=== PATIENT | female | born 2005 | race Caucasian/White ===

== ENCOUNTER 2025-07-22 02:41 | Emergency (ER) | payer BC, SELFPAY ==
[2025-07-22 02:41] VITALS: BP 142/89; PULSE 111; RESP 23; TEMP 36.8; O2SAT 99; BMI 34.0
--- NOTE | 2025-07-22 02:51 | ED.VIS.GI ---
HPI HPI - GI History of Present Illness Chief Complaint: Abd Pain Informant: patient Abdominal Pain/Flank Pain Onset: Days (5) Context: Gradual Onset Timing: Intermittent Quality: Cramping and Sharp Location: RLQ and LLQ Worsened by: - (Bending, coughing) Relieved by: Nothing Nausea/Vomiting/Emesis GI Symptom: Positive for Nausea and Vomiting Diarrhea/Melena/Hematochezia GI Symptom: Positive for Diarrhea; Negative for Melena or Hematochezia Associated Symptoms Associated Symptoms: Positive for Frequency; Negative for Dysuria or Hematuria Narrative Narrative: Patient presents with abdominal pain that has been intermittent over the last 5 days. Patient states it come on gradually. Patient describes it as sharp and cramping. Patient states it is mainly over the lower abdomen. Patient states it is worse when she bends forward and when she coughs. Patient states nothing makes it better. Patient admits to some nausea and vomiting. Patient denies any hematemesis or coffee-ground emesis. Patient admits to some diarrhea but denies any melena or hematochezia. Patient admits to some urinary frequency but denies any dysuria or hematuria. Patient states her last menstrual period was approximately 2 weeks ago. Patient denies any fevers or chills. Patient states her pain does radiate into her back. [facility] Medical History Hypothyroid Home Medications ?Medication ?Instructions ?Recorded ?Last Taken ?Type levothyroxine 100 mcg tablet 100 mcg PO DAILY 07/22/25 Unknown History norethindrone 1.5 mg-ethinyl 1 tab PO DAILY 07/22/25 Unknown History estradiol 30 mcg(21)/iron 75 mg(7) tablet (Ruthie Fe 1.5/30 (28)) Allergy/AdvReac Type Severity Reaction Status Date / Time No Known Allergies Allergy Verified 07/22/25 02:44 Social History Smoking Status: Never smoker ROS ROS ED Constitutional Constitutional ED: Denies chills or fever(s) Eyes Eyes: Denies blurry vision or change in vision ENT ENT ED: Denies rhinorrhea or sore throat Cardiovascular Cardiovascular: Denies chest pain or palpitations Respiratory/Chest Respiratory/Chest: Reports cough; Denies dyspnea Gastrointestinal Gastrointestinal: Reports abdominal pain, diarrhea, nausea and vomiting Genitourinary Genitourinary ED: Reports urinary frequency; Denies dysuria or hematuria Musculoskeletal Musculoskeletal: Reports back pain; Denies neck pain Integumentary Denies abscess or rash Neurologic Neurologic: Reports headache(s); Denies weakness Allergic/Immunologic Allergic/Immunologic ED: Denies mouth swelling or urticaria EXAM Physical Exam Const Vital Signs: 07/22/25 02:41 07/22/25 03:00 Temperature 98.2 F Temperature Source Oral Pulse Rate 111 H 89 Respiratory Rate 23 H 18 Blood Pressure 142/89 H 141/85 H Blood Pressure Mean 106 103 Pulse Ox 99 100 Oxygen Delivery Method Room Air Room Air Positive well nourished and well developed General Appearance ED: well developed and NAD HEENT Reports moist mucous membranes normocephalic and atraumatic Neck supple and no JVD Resp normal respiratory effort and clear to auscultation bilaterally Cardio regular rate and regular rhythm GI non-distended Palpation: soft and tender epigastric, LLQ, RLQ, LUQ, RUQ, periumbilical and suprapubic; Negative for guarding or rebound tenderness present Extremity full ROM General Extremety ED: Negative for edema General Extremity: Negative for edema Neuro CN's II-XII intact bilaterally, moves all extremities and no sensory deficits noted Sensorium / Orientation: alert Motor Exam: strength 5/5 throughout Psych mental status grossly normal and thought process normal MDM MDM MDM Narrative Medical decision making narrative: Differential diagnosis includes viral gastroenteritis, dehydration, pancreatitis, cholecystitis, cholelithiasis, electrolyte abnormality, urinary tract infection, , and anxiety. CBC will be obtained to assess for leukocytosis and anemia. Comprehensive metabolic profile will be obtained to assess for hepatic function, renal function, and electrolyte abnormality. Lipase will be obtained to assess for pancreatitis. Serum hCG will be obtained to assess for . History & Record Review Additional record(s) reviewed:: Prior outpatient record Lab Data Attestation: I reviewed the patient's lab results. Lab results narrative: CBC was reviewed and was within normal limits. Comprehensive metabolic profile was reviewed and was within normal limits. Lipase was reviewed and was normal at 21. Serum hCG was reviewed and was negative. Labs: Laboratory Results - last 24 hr 07/22/25 02:47 WBC 7.7 RBC 5.16 Hgb 14.8 Hct 42.9 MCV 83.1 MCH 28.7 MCHC 34.5 RDW Std Deviation 39.0 RDW Coeff of Yehuda 12.9 Plt Count 263 MPV 10.5 Immature Gran % (Auto) 0.500 Neut % (Auto) 60.0 Lymph % (Auto) 32.7 [place] % (Auto) 5.4 Eos % (Auto) 0.9 Baso % (Auto) 0.5 Absolute Neuts (auto) 4.6 Absolute Lymphs (auto) 2.52 Nucleated RBC % 0 Sodium 138 Potassium 3.9 Chloride 104 Carbon Dioxide 20.0 L Anion Gap 14 BUN 12 Creatinine 0.81 Estim Creat Clear Calc 110.76 Est GFR (MDRD) Non-Af 106 BUN/Creatinine Ratio 15.2 Glucose 101 H Calcium 9.5 Total Bilirubin 0.23 AST 20 ALT 16 Alkaline Phosphatase 47 Total Protein 7.7 Albumin 4.4 Globulin 3.3 Albumin/Globulin Ratio 1.3 Lipase 21 Serum , Qual NEGATIVE Treatment and Re-Evaluation :: Patient was given IV fluids and Zofran. Patient was feeling better on reevaluation. Patient was advised of her findings. Patient was instructed to drink plenty of fluids. Patient was instructed to take Tylenol or ibuprofen as needed for any pain. Patient was instructed to follow-up with her primary care physician in 5 to 7 days for further evaluation. Patient understood and was agreeable with the plan. All questions were answered. Discharge Plan Triage Chief Complaint: Abd Pain ED Provider: Peterson Jean Dx/Rx/DC Orders Clinical Impression: Abdominal pain, Nausea, vomiting, and diarrhea Instructions: ED Abdominal Pain Unkn Cause Fem Prescriptions: No Action norethindrone-e.estradiol-iron [Ruthie Fe 1.5/30 (28)] 1.5 mg-30 mcg (21)/75 mg (7) tablet 1 tab PO DAILY levothyroxine 100 mcg tablet 100 mcg PO DAILY Stand Alone Forms: ED Work / School Excuse Primary Care Provider: ZENAIDA PLEITEZ Referrals: ZENAIDA PLEITEZ [Other] - 5-7 Days Grayson Watkins DO [Non-Staff, Pediatrics] - 5-7 Days Print Language: [place] Disposition Disposition: Home, Self Care
[2025-07-22 03:00] VITALS: BP 141/85; PULSE 89; RESP 18; O2SAT 100
[2025-07-22] MEDS: 0.9% Normal Saline (1000mL) 1,000 ML 999 ML IV (03:09)
[2025-07-22 03:14] LABS: Hematocrit 42.9 % (37-47); Hemoglobin 14.8 g/dL (12.0-15.0); Immature Granulocytes Count 0.040 X10^3/uL (0.0-0.0); Mean Corp Hgb Conc 34.5 g/dL (32-36); Mean Corpuscular Volume 83.1 fL (81-99); Mean Platelet Vol. 10.5 fl (6.2-12.0); NRBC Flagged by Analyzer 0 % (0-5); Platelet Count 263 K/mm3 (150-450); RBC Distribution Width CV 12.9 % (11.6-14.6); RBC Distribution Width SD 39.0 fl (35.1-43.9); Red Blood Count 5.16 M/mm3 (4.2-5.4); White Blood Count 7.7 K/mm3 (4.4-11.0)
--- OUTSIDE RECORDS SUMMARY | 2025-07-22 03:27 | XMS RPT_ITS | CCD ---
Author Organization [facility] Care Team Providers Care Agency Sales Representative Name Role Phone FARA, PAUL Admitting Unavailable FARA, PAUL Attending Unavailable FARA, PAUL Primary Care Unavailable FARA, PAUL Admitting Unavailable FARA, PAUL Attending Unavailable FARA, PAUL Primary Care Unavailable FARA, PAUL Consulting Unavailable PROVIDER, UNKNOWN Consulting Unavailable FARA, PAUL Admitting Unavailable FARA, PAUL Attending Unavailable FARA, PAUL Primary Care Unavailable FARA, PAUL Consulting Unavailable PROVIDER, UNKNOWN Consulting Unavailable LUCAS LOFTON, JUNIOR Consulting Unavailable WOOD DO~[id number], WOOD [place]ST[place] A Attending Unavailable WOOD DO~[id number], WOOD [place] A Admitting Unavailable PLEITEZ OPTICAL DESIGN ENGINEER~[id number], PRICILLA ESTEVEZ A Prima ry Care Unavailable JUNIOR ZAVALA MD Consulting Unavailable PLEITEZ OPTICAL DESIGN ENGINEER, ZENAIDA A Consulting Unavail able PLEITEZ OPTICAL DESIGN ENGINEER, ZENAIDA A Consulting Unavail able WOOD DO, HOUSTON A Consulting Unavailable WOOD DO, HOUSTON A Consulting Unavailable PLEITEZ OPTICAL DESIGN ENGINEER, ZENAIDA A Consulting Unavail able PLEITEZ OPTICAL DESIGN ENGINEER~[id number], PLEITEZ ZENAIDA A Atten ding Unavailable PLEITEZ OPTICAL DESIGN ENGINEER~[id number], PLEITEZ ZENAIDA A Prima ry Care Unavailable PLEITEZ OPTICAL DESIGN ENGINEER~[id number], PLEITEZ ZENAIDA A Admit ting Unavailable PLEITEZ OPTICAL DESIGN ENGINEER, ZENAIDA A Consulting Unavail able PLEITEZ OPTICAL DESIGN ENGINEER~[id number], PLEITEZ ZENAIDA A Admit ting Unavailable PLEITEZ OPTICAL DESIGN ENGINEER, ZENAIDA A Consulting Unavail able PLEITEZ OPTICAL DESIGN ENGINEER~[id number], PLEITEZ ZENAIDA A Atten ding Unavailable PLEITEZ OPTICAL DESIGN ENGINEER~[id number], PLEITEZ ZENAIDA A Prima ry Care Unavailable PLEITEZ OPTICAL DESIGN ENGINEER, ZENAIDA A Consulting Unavail able Problems Problem Classification Problem Date Documented Da te Episodic/Chronic Asthma (1 source) Exercise induced bronchospasm; Translations: [Exercise induced bronchospasm] Onset: 01-07-2023 Chronic Disorders of lipid metabolism (1 source) Mixed hyperlipidemia; Translations: [Mixed hyperlipidemia] Onset: 01-07-2023 Chronic E Codes: Natural/environment (1 source) Overexertion from prolonged static or awkward postures, initial encounter; Translations: [OVEREXERT PROLNG STAT/AWK PST INIT] Onset: 09-06-2024 Episodic Other gastrointestinal disorders (1 source) Constipation, unspecified; Translations: [Constipation, unspecified] Onset: 01-07-2023 Episodic Other injuries and conditions due to external causes (2 sources) Unspecified injury of left ankle, initial encounter; Translations: [UNSPECIFIED INJURY LT ANKLE INITIAL] Onset: 09-02-2024 Episodic Other nutritional; endocrine; and metabolic disorders (1 source) Overweight; Translations: [Overweight] Onset: 01-07-2023 Episodic Other screening for suspected conditions (not mental disorders or infectious disease) (2 sources) Encounter for screening for diseases of the blood and blood-forming organs and certain disorders involving the immune mechanism; Translations: [Encounter for screening for other metabolic disorders] Onset: 01-07-2023 Episodic Sprains and strains (1 source) Sprain of unspecified ligament of left ankle, initial encounter; Translations: [SPRAIN UNS LIGAMENT LT ANKLE INIT] Onset: 09-06-2024 Episodic Thyroid disorders (5 sources) Hypothyroidism, unspecified; Translations: [Hypothyroidism, unspecified] Onset: 03-05-2022 Chronic Results Test Name Value Interpretation Reference Range Facil ity CBC W Auto Differential pane l (Bld)on 11-09-2024 Basophils (Bld) [#/Vol] 0.06 10*3/uL Normal <=0.70 [facility] Comment on above: Performed By: #### 5 7021-8 #### [facility] [address] [place], [place] [address] Commercial Finance Manager - Lauren FALCON [id number] Basophils/100 WBC (Bld) 0.8 % Normal <=2.0 [facility] Comment on above: Performed By: #### 5 7021-8 #### [facility] [address] [place] [address] Commercial Finance Manager - Lauren HOYTIA [id number] Eosinophils (Bld) [#/Vol] 0.22 10*3/uL Normal <=0.70 [facility] Comment on above: Performed By: #### 5 7021-8 #### [facility] [address] [place] [address] Commercial Finance Manager - Lauren HOYTIA [id number] Eosinophils/100 WBC (Bld) 2.9 % Normal <=10.0 [facility] Comment on above: Performed By: #### 5 7021-8 #### [place] [address] [place] [address] Commercial Finance Manager - Lauren HOYTIA [id number] Erythrocyte distribution width (RBC) [Entitic vol] 39.3 fL Normal 36.4-46.3 [facility] Comment on above: Performed By: #### 5 7021-8 #### [place] [address] [place] [address] Commercial Finance Manager - Lauren HOYTIA [id number] Hematocrit (Bld) [Volume fraction] 44.3 % Normal 37.0-47.0 [facility] Comment on above: Performed By: #### 5 7021-8 #### [place] [address] [place] [address] Commercial Finance Manager - Lauren HOYTIA [id number] Hemoglobin (Bld) [Mass/Vol] 14.9 g/dL Normal 12.0-16.0 [facility] Comment on above: Performed By: #### 5 7021-8 #### [facility] [address] [place] [address] Commercial Finance Manager - Lauren HOYTIA [id number] Immature granulocytes (Bld) [#/Vol] 0.03 10*3/uL Normal <=0.10 [facility] Comment on above: Performed By: #### 5 7021-8 #### [place] [address] [place] [address] Commercial Finance Manager - Lauren HOYTIA [id number] Immature granulocytes/100 WBC (Bld) 0.40 % Normal <=1.50 [facility] Comment on above: Performed By: #### 5 7021-8 #### [address] [place] [address] Commercial Finance Manager - Lauren HOYTIA [id number] Lymphocytes (Bld) [#/Vol] 3.27 10*3/uL Normal 1.20-3.40 [facility] Comment on above: Performed By: #### 5 7021-8 #### [address] [place] [address] Commercial Finance Manager - Lauren HOYTIA [id number] Lymphocytes/100 WBC (Bld) 43.3 % High 20.0-40.0 [facility] Comment on above: Performed By: #### 5 7021-8 #### [place] [address] Commercial Finance Manager - Lauren HOYTIA [id number] MCH (RBC) [Entitic mass] 28.0 pg Normal 27.0-31.0 [facility] Comment on above: Performed By: #### 5 7021-8 #### [place] [address] Commercial Finance Manager - Lauren HOYTIA [id number] MCHC (RBC) [Mass/Vol] 33.6 g/dL Normal 32.0-36.0 [facility] Comment on above: Performed By: #### 5 7021-8 #### [place] [address] Commercial Finance Manager - Lauren HOYTIA [id number] MCV (RBC) [Entitic vol] 83.3 fL Normal 80.0-100.0 [facility] Comment on above: Performed By: #### 5 7021-8 #### [address] [place] [address] Commercial Finance Manager - Lauren HOYTIA [id number] Monocytes (Bld) [#/Vol] 0.60 10*3/uL Normal 0.10-0.60 [facility] Comment on above: Performed By: #### 5 7021-8 #### [place] [address] [facility] [place] [address] Commercial Finance Manager - Lauren HOYTIA [id number] Monocytes/100 WBC (Bld) 7.9 % Normal <=8.0 [facility] Comment on above: Performed By: #### 5 7021-8 #### [address] [place] [address] Commercial Finance Manager - Lauren Koo CLIA [id number] Neutrophils (Bld) [#/Vol] 3.38 10*3/uL Normal 1.40-6.50 [facility] Comment on above: Performed By: #### 5 7021-8 #### [address] [place] [address] Commercial Finance Manager - Lauren Koo CLIA [id number] Neutrophils/100 WBC (Bld) 44.7 % Low 50.0-70.0 [facility] Comment on above: Performed By: #### 5 7021-8 #### [address] [place] [address] Commercial Finance Manager - Lauren HOYTIA [id number] Nucleated RBC (Bld) [#/Vol] 0.00 10*3/uL Normal <=0.10 [facility] Comment on above: Performed By: #### 5 7021-8 #### [address] [place] [address] Commercial Finance Manager - Lauren HOYTIA [id number] Platelet mean volume (Bld) [Entitic vol] 10.2 fL Normal 9.0-13.0 [facility] Comment on above: Performed By: #### 5 7021-8 #### [address] [place] [address] Commercial Finance Manager - Lauren HOYTIA [id number] Platelets (Bld) [#/Vol] 263 10*3/uL Normal 130-400 [facility] Comment on above: Performed By: #### 5 7021-8 #### [place] [address] [place] [address] Commercial Finance Manager - Lauren HOYTIA [id number] RBC (Bld) [#/Vol] 5.32 10*6/uL Normal 4.00-6.30 [facility] Comment on above: Performed By: #### 5 7021-8 #### [facility] [address] [place] [address] Commercial Finance Manager - Lauren HOYTIA [id number] WBC (Bld) [#/Vol] 7.56 10*3/uL Normal 4.80-10.80 [facility] Comment on above: Performed By: #### 5 7021-8 #### [facility] [address] [place] [address] Commercial Finance Manager - Lauren FALCON [id number] Comprehensive metabolic 2000 panelon 11-09-2024 Albumin [Mass/Vol] 3.5 g/dL Normal 3.4-5.0 [facility] Comment on above: Performed By: #### 2 4323-8 #### [facility] [address] [place] [address] Commercial Finance Manager - Lauren HOYTIA [id number] ALP [Catalytic activity/Vol] 60 U/L Normal 50-136 [facility] Comment on above: Performed By: #### 2 4323-8 #### [facility] [address] [place] [address] Commercial Finance Manager - Lauren HOYTIA [id number] ALT [Catalytic activity/Vol] 14 U/L Normal 14-59 [facility] Comment on above: Performed By: #### 2 4323-8 #### [facility] [address] [place] [address] Commercial Finance Manager - Lauren FALCON [id number] Anion gap [Moles/Vol] 5.0 mmol/L Normal <=15.0 [facility] Comment on above: Performed By: #### 2 4323-8 #### [facility] [address] [place] [address] Commercial Finance Manager - Lauren HOYTIA [id number] AST [Catalytic activity/Vol] 15 U/L Normal 15-37 [facility] Comment on above: Performed By: #### 2 4323-8 #### [facility] [address] [place] [address] Commercial Finance Manager - Lauren HOYTIA [id number] Bilirubin [Mass/Vol] 0.2 mg/dL Normal 0.2-1.0 [facility] Comment on above: Performed By: #### 2 4323-8 #### [facility] [address] [place] [address] Commercial Finance Manager - Lauren HOYTIA [id number] Calcium [Mass/Vol] 9.3 mg/dL Normal 8.5-10.1 [facility] Comment on above: Performed By: #### 2 4323-8 #### [facility] [address] [place] [address] Commercial Finance Manager - Lauren HOYTIA [id number] Chloride [Moles/Vol] 108 mmol/L High 98-107 [facility] Comment on above: Performed By: #### 2 4323-8 #### [facility] [address] [facility] [place] [address] Commercial Finance Manager - Lauren HOYTIA [id number] CO2 [Moles/Vol] 25 mmol/L Normal 21-32 [facility] Comment on above: Performed By: #### 2 4323-8 #### [facility] [address] [facility] [place] [address] Commercial Finance Manager - Lauren Koo CLIA [id number] Creatinine [Mass/Vol] 0.68 mg/dL Normal 0.51-0.95 [facility] Comment on above: Performed By: #### 2 4323-8 #### [facility] [address] [facility] [place] [address] Commercial Finance Manager - Lauren HOYTIA [id number] GFR/1.73 sq M.predicted MDRD (S/P/Bld) [Vol rate/Area] mL/min/{1.73_m2} Normal >=60 [facility] Comment on above: Performed By: #### 2 4323-8 #### [facility] [address] [place] [address] Commercial Finance Manager - Lauren FALCON [id number] Glucose [Mass/Vol] 90 mg/dL Normal 74-106 [facility] Comment on above: Performed By: #### 2 4323-8 #### [facility] [address] [facility] [place] [address] Commercial Finance Manager - [facility] [id number] HGFR GLOMERULAR FILTRATIO N RATE INTERPRETATION~The eGFR is calculated using the MDRD equation.~This equation has been validated in patients with chronic kidney disease;~however, it underestimates the GFR in healthy patients with GFR's over 60 mL/min.~The equation is not valid in children under the age of 18.~NOTE: Criteria for Chronic Kidney Disease:~ ~1. Kidney damage for at least three months, as defined~by structural or functional abnormalities of the kidney,~with or without decreased glomerular filtration rate, manifested by either:~* Pathological abnormalities or~* Markers of Kidney damage, including abnormalities in~the composition of the blood or urine or abnormalities in imaging tests.~ ~2. GFR <60 mL/min/1.73 m squared for at least three months, with or without kidney damage.~ Normal [facility] Comment on above: Performed By: #### 2 4323-8 #### [facility] [address] [facility] [place] [address] Commercial Finance Manager - LaurenDale [facility] CenterKoo FATEMEH [id number] Potassium [Moles/Vol] 4.2 mmol/L Normal 3.5-5.1 [facility] Comment on above: Performed By: #### 2 4323-8 #### [facility] [address] [facility] [place] [address] Commercial Finance Manager - LaurenRobert Wood Johnson University Hospital at RahwayFATEMEH [id number] Protein [Mass/Vol] 7.2 g/dL Normal 6.4-8.2 [facility] Comment on above: Performed By: #### 2 4323-8 #### [facility] [address] [facility] [place] [address] Commercial Finance Manager - [facility] LAIFATEMEH [id number] Sodium [Moles/Vol] 138 mmol/L Normal 136-145 [facility] Comment on above: Performed By: #### 2 4323-8 #### [facility] [address] [place] [address] Commercial Finance Manager - [facility] LAIFATEMEH [id number] Urea nitrogen [Mass/Vol] 11 mg/dL Normal 7-17 [facility] Comment on above: Performed By: #### 2 4323-8 #### [facility] [address] [place] [address] Commercial Finance Manager - [facility] LAIFATEMEH [id number] FREE T4on 11-09-2024 Free T4 [Mass/Vol] 1.51 ng/dL High 0.76-1.46 [facility] Comment on above: Performed By: #### 3 024-7 #### [facility] [address] [facility] [place] [address] Commercial Finance Manager - LaurenRobert Wood Johnson University Hospital at RahwayFATEMEH [id number] TSH DL <= 0.05 mIU/L Qnon TSH Qn 4.811 uIU/mL High 0.358-3.740 [facility] Comment on above: Performed By: #### 1 1579-0 #### [facility] [address] [facility] [place] [address] Commercial Finance Manager - [facility] CenterFAT[facility]EH [id number] ANKLE LEFT PORTABLEon 2023 ANKLE LEFT PORTABLE EXAM: ANKLE LEFT PORTABLE 09/02/2024 HISTORY: UNSPECIFIED INJURY OF LEFT ANKLE, SEQUELA COMPARISON: None. TECHNIQUE: Left foot 03/31/2017 FINDINGS: There is lateral soft tissue swelling at the ankle. No fracture or dislocation is currently evident. Ankle mortise joint is maintained. IMPRESSION: Soft tissue swelling without fracture evident Normal [facility] ANKLE RIGHT COMPLETEon 05-20 ANKLE RIGHT COMPLETE HISTORY: Right ankle pain and swelling after rolling the ankle yesterday. Sprain. ANKLE RIGHT COMPLETE: 05/20/2024 8:03 AM EDT COMPARISON: None. FINDINGS: There is a small amount of soft tissue swelling adjacent to the lateral malleolus. However, no fracture or dislocation is seen. No joint space narrowing. IMPRESSION: Mild lateral soft tissue swelling without evidence of a fracture or dislocation. Normal [facility] FREE T4on 11-30-2023 Free T4 [Mass/Vol] 1.03 ng/dL Normal 0.76-1.46 [facility] Comment on above: Performed By: #### 1 1579-0, 4-7 #### [facility] [address] [place] [address] Commercial Finance Manager - [facility] CenterIA [id number] TSH DL <= 0.05 mIU/L Qnon TSH Qn 2.210 uIU/mL Normal 0.358-3.740 [facility] Comment on above: Performed By: #### 1 1579-0, 4-7 #### [facility] [address] [place] [address] Commercial Finance Manager - [facility] CLIA [id number] GC/CHLAM AMPLIFICATION URINE [CCL]on 01-08-2023 GC Amplification See Below Normal Negative fo r Neisseria go [facility] Comment on above: Result Comment: GC A MPLIFICATION Negative for Neisseria gonorrhoeae by amplification CHLAMYDIA AMPLIFICATION Negative for Chlamydia trachomatis by amplification For screening asymptomatic women, a vaginal swab specimen(APTIMA vaginal swab [id number]) is optimal. Urine specimens have reduced sensitivity for Chlamydia trachomatis or Neisseria gonorrhoeae infection in female patients without symptoms. SOURCE: URINE [facility] [address] [place] [address] Cruzito Monet III, M.D. [id number] Performed By: #### 2 22541 #### [facility],[address] [place], [place] [id number] CBC + DIFFon 01-07-2023 Baso # 0.00 x10EE3/UL Normal 0.00 - 0.10 [facility] Comment on above: Performed By: #### 2 37821 #### [facility],[address] [place], [place] [id number] Basophils/100 WBC (Bld) 0.8 % Normal 0.0 - 2.0 [facility] Comment on above: Performed By: #### 2 04004 #### [facility],[address] [place] [address] CBC + DIFF Normal [facility] Comment on above: Result Comment: CBC- COMPLETE BLOOD COUNT Performed By: #### 2 83285 #### [facility],[address] [place] [address] EO # 0.10 x10EE3/UL Normal 0.00 - 0.50 [facility] Comment on above: Performed By: #### 2 76192 #### [facility],[address] [place] [address] Eosinophils/100 WBC (Bld) 1.3 % Normal 0.0 - 7.0 [facility] Comment on above: Performed By: #### 2 27076 #### [facility],[address] [place] [address] Erythrocyte distribution width (RBC) [Ratio] 12.9 % Normal 12.0 - 15.6 [facility] Comment on above: Performed By: #### 2 10664 #### [facility],[address] [place] [address] Hematocrit (Bld) [Volume fraction] 43.3 % Normal 34.0 - 46.0 [facility] Comment on above: Performed By: #### 2 68340 #### [facility],[address] [place] [address] Hemoglobin (Bld) [Mass/Vol] 14.6 g/dL Normal 12.0 - 16.0 [facility] Comment on above: Performed By: #### 2 20899 #### [facility],[address] [place] [address] Lymph # 2.50 x10EE3/UL Normal 0.80 - 2.80 [facility] Comment on above: Performed By: #### 2 71800 #### [facility],[address] [place] [address] Lymphocytes/100 WBC (Bld) 41.0 % Normal 20.0 - 45.0 [facility] Comment on above: Performed By: #### 2 15591 #### [facility],[address] [place] [address] MANUAL DIFF N/A Normal [facility] Comment on above: Performed By: #### 2 69097 #### [facility],[address] [place] [address] MCH (RBC) [Entitic mass] 29 pg Normal 27 - 33 [facility] Comment on above: Performed By: #### 2 70144 #### [facility],[address] [place] [address] MCHC 34 X10 3 Normal 32 - 36 [facility] Comment on above: Performed By: #### 2 02112 #### [facility],[address] [place] [address] MCV (RBC) [Entitic vol] 86 fL Normal 80 - 99 [facility] Comment on above: Performed By: #### 2 21050 #### [facility],[address] [place] [address] Billings # 0.40 x10EE3/UL Normal 0.20 - 1.00 [facility] Comment on above: Performed By: #### 2 77176 #### [facility],[address] [place] [address] MONOS % 6.2 % Normal 0.0 - 10.0 [facility] Comment on above: Performed By: #### 2 18243 #### [facility],[address] [place], [place] [address] Morphology Jad (Bld) [Interp] N/A Normal [facility] Comment on above: Performed By: #### 2 23241 #### [facility],[address] [place] [address] Neut # 3.10 x10EE3/UL Normal 1.50 - 7.10 [facility] Comment on above: Performed By: #### 2 39417 #### [facility],[address] [place] [address] Neutrophils/100 WBC (Bld) 50.7 % Normal 46.0 - 76.0 [facility] Comment on above: Performed By: #### 2 93556 #### [facility],[address] [place] [address] PLATELET 273 x10EE3/UL Normal 150 - 450 [facility] Comment on above: Performed By: #### 2 28813 #### [facility],[address] [place] [address] Platelet mean volume (Bld) [Entitic vol] 9.5 fL Normal 6.6 - 10.5 [facility] Comment on above: Result Comment: AUTO MATED DIFFERENTIAL Performed By: #### 2 25727 #### [facility],[address] [place] [address] RBC 5.06 x 10EE6/UL Normal 4.10 - 5.30 [facility] Comment on above: Performed By: #### 2 49180 #### [facility],[address] [place] [address] WBC 6.1 x 10EE3/UL Normal 4.5 - 10.8 [facility] Comment on above: Performed By: #### 2 51565 #### [facility],[address] [place] [address] CMP with eGFRon 01-07-2023 AGE 17 years Normal [facility] [facility] Comment on above: Performed By: #### 2 83566 #### [facility],[address] [place] [address] 19276 Albumin [Mass/Vol] 4.1 g/dL Normal 3.4 - 5.0 [facility] Comment on above: Performed By: #### 2 51447 #### [facility],[address] [place] [address] 11835 Albumin/Globulin [Mass ratio] 1.1 {ratio} Normal 0.9 - 1.6 [facility] Comment on above: Performed By: #### 2 42455 #### [facility],[address] [place] [address] 05665 ALK PHOS 62 U/L Normal 46 - 116 [facility] Comment on above: Performed By: #### 2 08096 #### [facility],[address] [place] [address] 71982 ALT [Catalytic activity/Vol] 22 U/L Normal 14 - 59 [facility] Comment on above: Performed By: #### 2 56766 #### [facility],[address] [place] [address] 86140 Anion gap [Moles/Vol] 16 mmol/L Normal 10 - 20 [facility] Comment on above: Performed By: #### 2 55660 #### [facility],[address] [place] [address] 87028 AST [Catalytic activity/Vol] 18 U/L Normal 13 - 39 [facility] Comment on above: Performed By: #### 2 58323 #### [facility],[address] [place] [address] 98447 B/C RATIO 17 ratio Normal 0 - 30 [facility] Comment on above: Performed By: #### 2 92403 #### [facility],[address] [place] [address] 91423 Bilirubin [Mass/Vol] 0.3 mg/dL Normal 0.2 - 1.0 [facility] Comment on above: Performed By: #### 2 44947 #### [facility],[address] [place] [address] 55473 Calcium [Mass/Vol] 9.5 mg/dL Normal 8.5 - 10.1 [facility] Comment on above: Performed By: #### 2 69007 #### [facility],[address] [place] [address] 49934 Chloride [Moles/Vol] 105 mmol/L Normal 98 - 107 [facility] Comment on above: Performed By: #### 2 16967 #### [facility],[address] [place] [address] 53442 CMP with eGFR Normal [facility] Comment on above: Result Comment: COMP REHENSIVE METABOLIC PANEL Performed By: #### 2 92099 #### [facility],[address] [place] [address] 92500 CO2 [Moles/Vol] 26.1 mmol/L Normal 21.0 - 32.0 [facility] Comment on above: Performed By: #### 2 93125 #### [facility],[address] [place] [address] 10104 Creatinine [Mass/Vol] 0.81 mg/dL Normal 0.55 - 1.02 [facility] Comment on above: Performed By: #### 2 91998 #### [facility],[address] [place] [address] 83837 GFR/1.73 sq M.predicted among non-blacks MDRD (S/P/Bld) [Vol rate/Area] mL/min/{1.73_m2} Normal 60 - 999 [facility] Comment on above: Performed By: #### 2 75249 #### [facility],[address] [place] [address] 57173 Result Comment: ACCO RDING TO THE NATIONAL KIDNEY DISEASE EDUCATION PROGRAM(NKDE), A NORMAL eGFR IS A VALUE GREATER THAN OR EQUAL TO 60 ML/MIN/1.73 SQ METERS. CHRONIC KIDNEY DISEASE: <60mL/MIN/1.73 SQ METERS KIDNEY FAILURE: <15mL/MIN/1.73 SQ METERS THIS TEST SHOULD ONLY BE USED FOR PATIENTS 18 YEARS OF AGE AND OLDER. Globulin (S) [Mass/Vol] 3.7 g/dL Normal 1.5 - 3.8 [facility] Comment on above: Performed By: #### 2 12437 #### [facility],[address] [place] [address] 79600 Glucose [Mass/Vol] 96 mg/dL Normal 74 - 106 [facility] Comment on above: Performed By: #### 2 33046 #### [facility],[address] [place] [address] 78813 Potassium [Moles/Vol] 4.5 mmol/L Normal 3.5 - 5.1 [facility] Comment on above: Performed By: #### 2 41608 #### [facility],[address] [place] [address] 58955 Protein [Mass/Vol] 7.8 g/dL Normal 6.4 - 8.2 [facility] Comment on above: Performed By: #### 2 63222 #### [facility],[address] [place] [address] 97397 Sodium [Moles/Vol] 143 mmol/L Normal 136 - 145 [facility] Comment on above: Performed By: #### 2 39122 #### [facility],[address] [place] [address] 92300 Urea nitrogen [Mass/Vol] 14 mg/dL Normal 7 - 18 [facility] Comment on above: Performed By: #### 2 90437 #### [facility],[address] [place] [address] 52058 LIPID PROFILEon 01-07-2023 Cholesterol [Mass/Vol] 234 mg/dL Normal 0 - 240 [facility] Comment on above: Performed By: #### 2 81273 #### [facility],[address] [place] [address] 05333 Cholesterol in HDL [Mass/Vol] 60 mg/dL Normal 40 - 60 [facility] Comment on above: Performed By: #### 2 53284 #### [facility],[address] [place] [address] 60474 Cholesterol in LDL [Mass/Vol] 155 mg/dL High 0 - 129 [facility] Comment on above: Performed By: #### 2 13479 #### [facility],[address] [place] [address] 51977 Cholesterol.total/C holesterol in HDL [Mass ratio] 3.9 {ratio} Normal 0.0 - 5.0 [facility] Comment on above: Performed By: #### 2 92111 #### [facility],[address] [place] [address] 18593 Lipid 1996 panel Normal [facility] Comment on above: Result Comment: LIPI D PROFILE Performed By: #### 2 42218 #### [facility],[address] [place] [address] 34715 Triglyceride [Mass/Vol] 94 mg/dL Normal 0 - 150 [facility] Comment on above: Performed By: #### 2 10971 #### [facility],[address] [place] [address] 18996 T4-FREE (FREE THYROXINE)on 0 01-07-2023 Free T4 [Mass/Vol] 0.93 ng/dL Normal 0.78 - 1.46 [facility] Comment on above: Result Comment: P otential of falsely elevated results when biotin concentrations are > 10 ng/mL. Performed By: #### 2 62603 #### [facility],[address] [place] [address] 76015 TSHon 01-07-2023 TSH Qn 1.97 m[IU]/L Normal 0.51 - 4.13 [facility] Comment on above: Performed By: #### 2 39839 #### [facility],[address] [place] [address] 77184 Urgent Care Visit Reporton 0 06-08-2022 Urgent Care Visit Report [facility] [address] [place] [address] [address] [place] [address] OFFICE VISIT Date of Service: 06/08/22 MR#: [id number] Acct: [id number] Name: REYES SEPULVEDA Rep #: [id number] : 2005 Provider: MARIAN Phillips Age/Sex: 16/F Location: [facility] Status: Signed Intake Intake Visit Reasons: WORK PHYSICAL/MAJORA IVY HPI HPI Details: REYES SEPULVEDA, is a 16 F who presents to the office today for preemployment physical. Please see corresponding scanned documents with today's date. Office Procedures Physical Exam Coding PE Coding Pre-employment PE: Yes Coding Level of Care Code No Charge Diagnoses Encounter for pre-employment health screening examination Z02.1 Assessment and Plan Assessment and Plan (1) Encounter for pre-employment health screening examination: Status: Acute 06/08/22 1208 Date Jona Yu Signature: Date (if applicable) CC: Normal [facility] T4-FREE (FREE THYROXINE)on 0 03-05-2022 Free T4 [Mass/Vol] 1.14 ng/dL Normal 0.78 - 1.46 [facility] Comment on above: Result Comment: P otential of falsely elevated results when biotin concentrations are > 10 ng/mL. Performed By: #### 2 88874 #### [address] [address] TSHon 03-05-2022 TSH Qn 1.53 m[IU]/L Normal 0.51 - 4.13 [facility] Comment on above: Performed By: #### 2 63924 #### [address] [address] GC/Chlamydia Amp, Uron 12-14 Chlamydia Amplif, Ur Normal [facility] Comment on above: Result Comment: Nega tive for For screening asymptomatic women, a vaginal swab specimen (APTIMA vaginal swab 071282) is optimal. Urine specimens have reduced sensitivity for Chlamydia trachomatis or Neisseria gonorrhoeae infection in female patients without symptoms. This test was developed and its performance characteristics determined by [facility] ([facility]). It has not been cleared or approved by the FDA. [facility] is regulated under CLIA as qualified to perform high complexity testing. This test is used for clinical purposes. It should not be regarded as investigational or for research. Chlamydia For screening asymptomatic women, a vaginal swab specimen (APTIMA vaginal swab 941098) is optimal. Urine specimens have reduced sensitivity for Chlamydia trachomatis or Neisseria gonorrhoeae infection in female patients without symptoms. This test was developed and its performance characteristics determined by [facility] ([facility]). It has not been cleared or approved by the FDA. [facility] is regulated under CLIA as qualified to perform high complexity testing. This test is used for clinical purposes. It should not be regarded as investigational or for research. trachomatis by For screening asymptomatic women, a vaginal swab specimen (APTIMA vaginal swab 434720) is optimal. Urine specimens have reduced sensitivity for Chlamydia trachomatis or Neisseria gonorrhoeae infection in female patients without symptoms. This test was developed and its performance characteristics determined by [facility] ([facility]). It has not been cleared or approved by the FDA. [facility] is regulated under CLIA as qualified to perform high complexity testing. This test is used for clinical purposes. It should not be regarded as investigational or for research. amplification. For screening asymptomatic women, a vaginal swab specimen (APTIMA vaginal swab 578471) is optimal. Urine specimens have reduced sensitivity for Chlamydia trachomatis or Neisseria gonorrhoeae infection in female patients without symptoms. This test was developed and its performance characteristics determined by [facility] ([facility]). It has not been cleared or approved by the FDA. [facility] is regulated under CLIA as qualified to perform high complexity testing. This test is used for clinical purposes. It should not be regarded as investigational or for research. Performed By: #### U GCCT #### [facility] [address] [place], [place] [address] GC Amplification, Ur NGNEG Normal [facility] Comment on above: Performed By: #### U GCCT #### [facility] [address] [place], [place] [address] TPO Antibodyon 10-26-2021 TPO Antibody <1.0 Normal <5.6 [facility] Comment on above: Performed By: #### M ICRO #### [facility] [address] [place], [place] [address] Provider Note - ED v2on Provider Note - ED v2 Provider Note - ED v2: Chart Review: HISTORY OF PRESENTING ILLNESS REYES is a 15 year old Female and was seen by me at 05-Jan-2021 17:31. Triage Information: Most recent Vital Sign Value Date PAST MEDICAL HISTORY ATTESTATION: I have reviewed and confirmed nurse's/medic's notes for patient's medications, allergies, and medical, surgical, family and social history ALLERGIES/INTOLERANCES : No Known Allergies HEALTH HISTORY: No documented data. OUTPATIENT MEDICATIONS: Home Medications Review Status for Reconciliation: Complete Med Status: No Current Medications SIGNIFICANT EVENTS: No documented data. END WORKER: Is : no Is : no RESULTS/VITAL SIGNS VITAL SIGNS: T PRBP SpO2O2(LPM) %FiO2 Method 05-Jan-2021 17:33:[id number] 98 MEDICAL DECISION MAKING/ED COURSE MDM/ED COURSE: This note was generated with voice recognition software and may contain errors including spelling, grammar, syntax, and misrecognization of what was dictated Chief Complaint work physical History of Present Illness Patient presents and offers no complaints. Patient presents for a work physical Review of Systems 10 systems reviewed negative with exception of history of present illness listed above Physical Examination General: Alert and oriented, No acute distress. Eye: Pupils are equal, round and reactive to light. HENT: Normocephalic Neck: Supple, Non-tender, No lymphadenopathy. Respiratory: Lungs are clear to auscultation, Respirations are non-labored, Breath sounds are equal, Symmetrical chest wall expansion. Cardiovascular: Normal rate, Regular rhythm. Gastrointestinal: Soft, non-tender, non-distended Musculoskeletal: Normal range of motion, normal strength, no tenderness, no swelling. Integumentary: Moffat, warm, dry, and Intact. Neurologic: Alert, Oriented, Normal sensory, Normal motor function. Cognition and Speech: Oriented, Speech clear and coherent. Psychiatric: Cooperative, Appropriate mood & affect. Impression and Plan Course: Unchanged Plan: Patient will be discharged to participate in work without restriction CLINICAL IMPRESSION Diagnosis/Annotation: ED Dx Name:Encounter for occupational physical examination Code:Z02.89 Disposition: discharged Type: home ATTESTATION CRITICAL CARE TIME Is this a critically ill patient: no Electronic Signatures: Anuj Monroe (OPTICAL DESIGN ENGINEER-DINKEY DRIVER) (Signed 05-Jan-2021 17:40) Authored: HPI, PMH, PE, Results/Vital Signs, MDM/ED Course, Clinical Impression, Attestation, Chart Review, Scores Last Updated: 05-Jan-2021 17:40 by Anuj Monroe (OPTICAL DESIGN ENGINEER-DINKEY DRIVER) [facility] Encounters Encounter Date Encounter Type Care Provider Facility Start: 11-12-2024 Encounter for genera l adult medical examination without abnormal findings PRICILLA PLEITEZ OPTICAL DESIGN ENGINEER~[id number] [facility] Start: 11-09-2024 End: 11-09-2024 ambulatory PRICILLA PLEITEZ OPTICAL DESIGN ENGINEER~[id number] Facility:[facility] Start: 11-09-2024 End: 11-09-2024 Encounter for general adult medical examination without abnormal findings PRICILLA PLEITEZ OPTICAL DESIGN ENGINEER~[id number] Facility:[facility] Start: 09-02-2024 End: 09-02-2024 Emergency department patient visit JUNIOR ZAVALA MD Facility:[facility] Start: 11-30-2023 End: 11-30-2023 ambulatory ZENAIDA PLEITEZ APRN Facility:[facility] Start: 01-07-2023 End: 01-07-2023 ambulatory [facility] Start: 01-07-2023 Encounter for genera l adult medical examination without abnormal findings [facility] Start: 03-05-2022 ambulatory [facility] Start: 03-05-2022 End: 03-05-2022 ambulatory PAUL CHAUDHARI [facility] Payers Date Payer Category Payer Unknown [id number] 2005 Unknown [id number] 2.16.8 [id number] 2004 Unknown [id number] 2.16.8 [id number] 2004 Unknown [id number] 2.16.8 [id number] 1981 Unknown [id number] 2.16.84 [id number] 1981 Unknown [id number] 2.16.84 [id number] 1981 Unknown [id number] 2.16.84 [id number] Unknown [id number] Unknown [id number] Summary Purpose Family History No Family History Records FoundNo Family History Records FoundNo Family History Records FoundNo Family History Records FoundNo Family History Records Found Advance Directives No Advanced Directives Records FoundNo Advanced Directives Records FoundNo Advanced Directives Records FoundNo Advanced Directives Records FoundNo Advanced Directives Records Found Additional Source Comments INFORMATION SOURCE (unrecogn ized section and content) DATE CREATED AUTHOR 01/08/2021 [facility] DATE CREATED AUTHOR AUTHOR'S ORGANIZ ATION 12/15/2021 [facility] DATE CREATED AUTHOR AUTHOR'S ORGANIZ ATION 06/09/2022 [facility] DATE CREATED AUTHOR AUTHOR'S ORGANIZ ATION 01/09/2023 [facility] DATE CREATED AUTHOR AUTHOR'S ORGANIZ ATION 11/13/2024 [facility] FOR RECORDS PERTAINING TO PATIENTS WHO ARE OR HAVE BEEN ENROLLED IN A CHEMICAL DEPENDENCY/SUBSTANCEABUSE PROGRAM, SOME INFORMATION MAY BE OMITTED. This clinical summary was aggregated from multiple sources. Caution should be exercised in using it in the provision of clinical care. This summary normalizes information from multiple sources, and as a consequence, information in this document may materially change the coding, format and clinical context of patient data. In addition, data may be omitted in some cases. CLINICAL DECISIONS SHOULD BE BASED ON THE PRIMARY CLINICAL RECORDS. [employer] [facility]. provides no warranty or guarantee of the accuracy or completeness of information in this document.
[2025-07-22 03:28] LABS: Internal QC Validated? YES +Cl - CLEAR BKGD; Pregnancy, Serum, hCG Quali. NEGATIVE Negative; Record Kit Lot#, Serum Preg. 0000964736
[2025-07-22 03:49] LABS: AST(SGOT) 20 U/L (<=31); Alanine Aminotransfer ALT/SGPT 16 U/L (<=34); Albumin, Serum 4.4 g/dL (3.5-5.0); Alkaline Phosphatase 47 U/L (35-104); Anion Gap 14 (5-15); BUN 12 mg/dL (4-19); BUN/Creat Ratio 15.2 RATIO (10-20); Calcium,Total 9.5 mg/dL (7.6-11.0); Carbon Dioxide 20.0 mmol/L (21.0-32.0); Chloride 104 mmol/L (98-108); Estimated Creatinine Clearance 110.76 ml/min (50-250); Globulin 3.3 g/dL (2.2-4.2); Glucose 101 mg/dL (70-99); Lipase 21 U/L (13-75); Potassium 3.9 mmol/L (3.3-5.1)
[2025-07-22 04:08] VITALS: BP 117/76; PULSE 65; RESP 18; TEMP 36.6; O2SAT 100
== END 2025-07-22 04:11 | disposition home or self-care (01) ==
PROVIDERS: Emergency Provider Emergency Medicine; Visit Provider Emergency Medicine
DX: R10.9 Unspecified abdominal pain (principal); R11.2 Nausea with vomiting, unspecified; R19.7 Diarrhea, unspecified; E03.9 Hypothyroidism, unspecified; Z79.890 Hormone replacement therapy
CPT/HCPCS: 80053; 83690; 84703; 85025; 96361; 96374; 99282; A4216; J2405